=== PATIENT | female | born 1995 | race Caucasian/White ===

== ENCOUNTER 2018-02-20 11:00 | Outpatient (RCR) | payer BC | END 2018-02-26 | disposition home or self-care (01) | LOC: WSPT | DX: S43.431D Superior glenoid labrum lesion of right shoulder, subsequent encounter (principal) | CPT/HCPCS: G0283-GP ==

== ENCOUNTER → 2018-04-02 | Outpatient (CLI) | payer BC | LOC: COL.RAD 09:37 | DX: N39.0 Urinary tract infection, site not specified (principal) ==

== ENCOUNTER 2018-05-28 08:45 | Outpatient (RCR) | payer BC | END 2018-05-28 14:24 | disposition home or self-care (01) | LOC: WSPT 08:45 | DX: S43.432D Superior glenoid labrum lesion of left shoulder, subsequent encounter (principal) ==

== ENCOUNTER 2018-12-12 07:31 | Emergency (ER) | payer BC ==
[~2018-12-12] VITALS: Ht 180.3 cm; Wt 81.8 kg
[2018-12-12 07:38] VITALS: BP 123/78; TEMP 97.5
[2018-12-12] MEDS ORDERED: SPRINTEC 35 MCG1 TAB PO (07:56)
[2018-12-12 08:18] LABS: BASO # 0.1 (0.0-0.2); BASO % 0.9 % (0.0-2.0); EOS # 0.1 (0.0-0.7); EOS % 1.1 % (0-4.0); GRAN % 71.8 % (42.2-75.2); HEMATOCRIT 41.2 % (37.0-47.0); HEMOGLOBIN 14.4 g/dl (12.5-16.0); LYMPH # 1.4 (1.2-3.4); LYMPH % 19.9 % (20.0-51.0); MEAN CELL VOLUME 84 fl (80.0-100.0); MEAN CORPUSCULAR HEMOGLOBIN 29 pg (27.0-31.0); MEAN CORPUSCULAR HGB CONC 35 g/dl (33.0-37.0); MEAN PLATELET VOLUME 9.9 fl (7.4-10.4); MONO # 0.4 (0.1-0.6); PLATELET COUNT 230 K/mm3 (130-400); RED BLOOD COUNT 4.91 M/mm3 (4.10-5.30); REDCELL DISTRIBUTION WIDTH-CV 12.8 % (11.5-14.5)
[2018-12-12 08:39] LABS: ALANINE AMINOTRANSFERASE 16 U/L (9-52); ALBUMIN 4.4 gm/dL (3.5-5.0); ALKALINE PHOSPHATASE 75 U/L (50-136); ANION GAP 11 mmol/L (7-16); AST,SGOT 30 U/L (15-37); BILIRUBIN,TOTAL 0.3 mg/dL (0.0-1.0); BLOOD UREA NITROGEN 13 mg/dL (7-17); CALCIUM 9.2 mg/dL (8.4-10.2); CARBON DIOXIDE 24 mmol/L (22-30); CHLORIDE 105 mmol/L (98-107); CREATININE, serum 0.68 (0.52-1.25); GLUCOSE 112 mg/dL (74-106); POTASSIUM 3.9 mmol/L (3.4-5.0); SODIUM 141 mmol/L (137-145); TOTAL PROTEIN 7.9 gm/dL (6.4-8.2)
[2018-12-12] MEDS ORDERED: ZOFRAN ODT4 MG PO (09:04)
[2018-12-12 09:24] LABS: C-REACTIVE PROTEIN 0.9 mg/dL (0.0-0.9); LIPASE 46 U/L (23-300)
[2018-12-12 09:29] LABS: COLLECTION METHOD CLEAN CATCH
[2018-12-12 09:30] LABS: ALCOHOL(ethanol),MEDICAL < 10 mg/dL
[2018-12-12 09:34] LABS: MUCOUS Present /lpf; PH 9 (5-8); SQUAMOUS EPITHELIAL 0-2 /hpf; URINE APPEARANCE Clear; URINE BACTERIA None Seen /hpf; URINE BILIRUBIN Negative (NEGATIVE); URINE BLOOD Negative (NEGATIVE); URINE COLOR Yellow; URINE GLUCOSE Negative (NEGATIVE); URINE KETONE Negative (NEGATIVE); URINE LEUKOCYTE ESTERASE Negative (NEGATIVE); URINE NITRATE Negative (NEGATIVE); URINE PROTEIN(semi-quant) 1+ (NEGATIVE); URINE RBC 0-2 /hpf; URINE UROBILINOGEN Negative (NEGATIVE)
[2018-12-12 10:05] VITALS: PULSE 80
== END 2018-12-12 10:05 | disposition home or self-care (01) ==
LOC: COL.ER 07:31
PROVIDERS: Family Medicine
DX: E86.9 Volume depletion, unspecified (principal); E86.0 Dehydration; Z90.89 Acquired absence of other organs
CPT/HCPCS: J1885; J2405; J7030; J7120

== ENCOUNTER 2019-02-06 13:24 | Emergency (ER) | payer BC ==
[~2019-02-06] VITALS: Ht 180.3 cm; Wt 83.9 kg
[~2019-02-06 13:24] MED LIST: SPRINTEC 35 MCG1 TAB PO; ZOFRAN ODT4 MG PO
[2019-02-06 14:39] VITALS: BP 128/78; PULSE 80; TEMP 98.1
== END 2019-02-06 14:46 | disposition home or self-care (01) ==
LOC: COL.ER 13:24
DX: S61.012A Laceration without foreign body of left thumb without damage to nail, initial encounter (principal); Z23 Encounter for immunization; W26.0XXA Contact with knife, initial encounter

== ENCOUNTER 2019-08-13 09:15 | Emergency (ER) | payer BC ==
[~2019-08-13] VITALS: Ht 180.3 cm; Wt 81.8 kg
[2019-08-13 09:21] VITALS: BP 129/83; TEMP 97.9
[2019-08-13 10:27] VITALS: PULSE 93
== END 2019-08-13 10:27 | disposition home or self-care (01) ==
LOC: COL.ER 09:15
DX: M25.572 Pain in left ankle and joints of left foot (principal)